=== PATIENT | female | born 1955 | race Hispanic/Latino ===

== ENCOUNTER 2022-03-19 10:50 | Inpatient (IN) | payer OTHER ==
[2022-03-19 11:50] LABS: Absolute Lymphocytes (CBC) 2.2 K/uL (0.7-4.9); Hematocrit 35.4 % (36.0-45.0); Lymphocytes % 29.5 % (15.3-44.8); MCV 92.7 fL (80-100); MPV 8.9 fL (7.6-11.3); RBC Red Blood Cell Count 3.81 M/uL (3.86-4.86)
[2022-03-19 12:06] LABS: Albumin 3.5 g/dL (3.4-5.0); Bilirubin Total 0.3 mg/dL (0.2-1.0); Potassium 4.2 mmol/L (3.5-5.1)
--- NOTE | 2022-03-19 12:43 | RAD REPORT ---
EXAM DESCRIPTION: CT - Abdomen Pelvis W Contrast - 03/19/2022 12:27 pm CLINICAL HISTORY: Abdominal pain/right lower quadrant pain COMPARISON: none. TECHNIQUE: Computed axial tomography of the abdomen pelvis was obtained. 100 cc Isovue-300 was admin istered intravenously. Oral contrast was not requested which limits evaluation of bowel and appendix All CT scans are performed using dose optimization technique as appropriate and may include automated exposure control or mA/KV adjustment according to patient size. FINDINGS: The gallbladder is contracted. Liver, spleen, pancreas and adrenals unremarkable Right kidney appears unremarkable. 1.5 centimeter structure within the left renal fossa presumably either a congenitally small or severe ly atrophied kidney. It contains a small cyst. There is no evidence of diverticulitis. Transverse colon extends into right lower pelvis. Ascending colon not seen. Presumably secondary to e ither surgery or congenital malformation Calcified uterine fibroid. Appendix not clearly seen. Mild compression deformity L1 vertebral body appears chronic IMPRESSION: Contracted gallbladder The appendix is not seen. No secondary signs appendicitis. However, the patient has clinical symptoms to suggest appendicitis then CT scan with oral contrast would be recommended
--- NOTE | 2022-03-19 14:35 | ER ---
Nurse's Notes [facility] Name: Ruth Doss Age: 66 yrs Sex: Female : 1955 Arrival Date: 03/19/2022 Time: 10:55 Bed 26 Private MD: Diagnosis: Upper GI bleed;Lower abdominal pain, unspecified;Anemia, unspecified;Essential (primary) hypertension Presentation: 03/19 11:07 Chief complaint: Patient states: Black stool about 3:30 am, second BM with black stool tp1 10:15. reports RLQ ABD pain described as pressure and is consistent, rates pain 4/10. denies nausea or vomiting. states second BM was loose. Coronavirus screen: Vaccine status: Patient reports receiving the 2nd dose of the covid vaccine. Ebola Screen: Patient negative for fever greater than or equal to 101.5 degrees Fahrenheit, and additional compatible Ebola Virus Disease symptoms Patient denies exposure to infectious person. Patient denies travel to an Ebola-affected area in the 21 days before illness onset. Initial Sepsis Screen: Does the patient meet any 2 criteria? No. Patient's initial sepsis screen is negative. Does the patient have a suspected source of infection? No. Patient's initial sepsis screen is negative. Risk Assessment: Do you want to hurt yourself or someone else? Patient reports no desire to harm self or others. Onset of symptoms was March 19, 2022. 11:07 Method Of Arrival: Ambulatory tp1 11:07 Acuity: HIRO 3 tp1 Triage Assessment: 11:11 General: Appears in no apparent distress. comfortable, Behavior is calm, cooperative. tp1 Pain: Complains of pain in right lower quadrant Pain currently is 4 out of 10 on a pain scale. Quality of pain is described as pressure, Pain began 2-3 days ago. Is continuous. Neuro: Pan Agitation-Sedation Scale (RASS): 0 - Alert and Calm Level of Consciousness is awake, alert, obeys commands, Oriented to person, place, time, situation. GI: Abdomen is flat, non-distended, Patient currently denies nausea, vomiting. Historical: - Allergies: 11:11 Ofloxacin; tp1 - PMHx: 11:11 Hypertensive disorder; Anxiety; hiatal hernia; tp1 - Immunization history:: Client reports receiving the 2nd dose of the Covid vaccine. - Social history:: Smoking status: unknown. Screenin:48 Abuse screen: Denies threats or abuse. Denies injuries from another. Nutritional jh6 screening: No deficits noted. Tuberculosis screening: No symptoms or risk factors identified. Fall Risk None identified. Assessment: 11:30 General: Appears in no apparent distress. Behavior is calm, cooperative. jh6 11:30 Pain: Complains of pain in abdomen Pain currently is 3 out of 10 on a pain scale. jh6 Quality of pain is described as crampy, Pain began suddenly, 4 hours ago. Is intermittent. GI: Abdomen is non-distended, Stools are reported to be dark in color. Bowel sounds present X 4 quads. Reports. 12:30 Reassessment: Patient and/or family updated on plan of care and expected duration. Pain jh6 level reassessed. Patient is alert, oriented x 3, equal unlabored respirations, skin warm/dry/pink. Patient denies pain at this time. 15:05 Reassessment: Patient appears in no apparent distress at this time. No changes from tw2 previously documented assessment. Patient and/or family updated on plan of care and expected duration. Pain level reassessed. Patient is alert, oriented x 3, equal unlabored respirations, skin warm/dry/pink. 16:58 Reassessment: Patient appears in no apparent distress at this time. Patient and/or hb family updated on plan of care and expected duration. Pain level reassessed. Patient is alert, oriented x 3, equal unlabored respirations, skin warm/dry/pink. 18:31 Reassessment: Patient appears in no apparent distress at this time. Patient and/or hb family updated on plan of care and expected duration. Pain level reassessed. Patient is alert, oriented x 3, equal unlabored respirations, skin warm/dry/pink. Vital Signs: 11:07 BP 168 / 89; Pulse 85; Resp 16; Temp 98.6; Pulse Ox 97% on R/A; Weight 63.5 kg; Height tp1 5 ft. 4 in. (162.56 cm); 14:00 BP 133 / 76; Pulse 84; Resp 17; Pulse Ox 98% ; Pain 0/10; jh6 15:05 BP 139 / 60; Pulse 89; Resp 17; Pulse Ox 99% on R/A; tw2 16:58 BP 137 / 71; Pulse 88; Resp 16; Pulse Ox 100% on R/A; hb 18:30 BP 132 / 70; Pulse 81; Resp 16; Pulse Ox 100% on R/A; hb 11:07 Body Mass Index 24.03 (63.50 kg, 162.56 cm) tp1 ED Course: 10:55 Patient arrived in ED. rg4 11:11 Triage completed. tp1 11:11 Arm band placed on. tp1 11:12 Vj Jimenes DO is Attending Physician. ms3 11:30 Placed in gown. Bed in low position. Call light in reach. Side rails up X 1. 6 11:31 Tiffanie Willis, LUCIA is Primary Nurse. 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 Inserted saline lock: 20 gauge in left [facility] antecubital area, using aseptic technique. Accessed. 12:28 CT Abd/Pelvis - IV Contrast Only In Process Unspecified. EDMS 12:33 Patient moved back from [address]. [facility] 14:33 Bhanu Fatima MD is Hospitalizing Provider. ms3 15:05 Pulse ox on. NIBP on. Warm blanket given. tw2 18:31 Patient admitted, IV remains in place. hb 19:20 Primary Nurse role handed off by Tiffanie Willis RN mw2 Administered Medications: 15:05 Drug: ProTONIX (pantoprazole) 40 mg Route: IVP; Site: left antecubital; tw2 16:49 Follow up: Response: No adverse reaction tw2 Medication: 11:49 VIS not applicable for this client. [facility] Outcome: 14:34 Decision to Hospitalize by Provider. ms3 18:30 Admitted to ER Hold. Please see [facility] for further documentation. hb 18:30 Condition: stable 18:30 Instructed on the need for admit, Demonstrated understanding of instructions. 03/20 12:49 Patient left the ED. Signatures: Dispatcher [employer] EDUT Nadja Carlos RN RN Roseanne Hernandez RN Parisa Reza RN RN tw2 Maria Guadalupe Neely rg4 Justina Varela mw2 Vj Jimenes DO DO ms3 Tiffanie Willis RN RN 6 Maya Verde RN RN tp1
--- NOTE | 2022-03-19 14:35 | EDPHYS ---
Physician Documentation [facility] Name: Ruth Doss Age: 66 yrs Sex: Female : 1955 Arrival Date: 03/19/2022 Time: 10:55 Bed 26 Private MD: ED Physician Vj Jimenes HPI: 03/19 14:31 This 66 yrs old Female presents to ER via Ambulatory with complaints of ms3 Black/Tarry Stools. 14:31 66-year-old female with past medical history of hypertension, anxiety, hiatal hernia, ms3 previous gastrointestinal bleeding that was unidentified presents for black stools that began at 830. Patient states at 1015 she developed diarrhea that was black. Patient states she is having right lower quadrant abdominal pain. Patient rates her pain a 3/10 and describes the pain as pressure. Patient states she has had abdominal pain for 3 days. Patient denies alleviating or inciting factors. Patient denies fevers, chills, lightheadedness, shortness of breath. Historical: - Allergies: 11:11 Ofloxacin; tp1 - PMHx: 11:11 Hypertensive disorder; Anxiety; hiatal hernia; tp1 - Immunization history:: Client reports receiving the 2nd dose of the Covid vaccine. - Social history:: Smoking status: unknown. ROS: 14:31 Constitutional: Negative for fever, and chills. Neck: Negative for injury, pain, and ms3 swelling, Cardiovascular: Negative for chest pain, and palpitations. Respiratory: Negative for shortness of breath, cough, wheezing, and pleuritic chest pain. 14:31 Abdomen/GI: Positive for abdominal pain, diarrhea, black/tarry stool. 14:31 All other systems are negative. Exam: 14:31 Constitutional: This is a well developed, well nourished patient who is awake, alert, ms3 and in no acute distress. Neck: Trachea midline, no cervical lymphadenopathy. Supple, full range of motion without nuchal rigidity, or vertebral point tenderness. No Meningismus. Chest/axilla: Normal chest wall appearance and motion. Nontender with no deformity. Cardiovascular: Regular rate and rhythm with a normal S1 and S2. No gallops, murmurs, or rubs. Normal PMI, no JVD. No pulse deficits. Respiratory: Lungs have equal breath sounds bilaterally, clear to auscultation and percussion. No rales, rhonchi or wheezes noted. No increased work of breathing, no retractions or nasal flaring. Abdomen/GI: Soft, non-tender, with normal bowel sounds. No distension or tympany. No guarding or rebound. No evidence of tenderness throughout. Skin: Warm, dry with normal turgor. Normal color with no rashes, no lesions, and no evidence of cellulitis. MS/ Extremity: Pulses equal, no cyanosis. Neurovascular intact. Full, normal range of motion. Psych: Awake, alert, with orientation to person, place and time. Behavior, mood, and affect are within normal limits. Vital Signs: 11:07 BP 168 / 89; Pulse 85; Resp 16; Temp 98.6; Pulse Ox 97% on R/A; Weight 63.5 kg; Height tp1 5 ft. 4 in. (162.56 cm); 14:00 BP 133 / 76; Pulse 84; Resp 17; Pulse Ox 98% ; Pain 0/10; jh6 15:05 BP 139 / 60; Pulse 89; Resp 17; Pulse Ox 99% on R/A; tw2 16:58 BP 137 / 71; Pulse 88; Resp 16; Pulse Ox 100% on R/A; hb 18:30 BP 132 / 70; Pulse 81; Resp 16; Pulse Ox 100% on R/A; hb 11:07 Body Mass Index 24.03 (63.50 kg, 162.56 cm) tp1 MDM: 11:27 Patient medically screened. ms3 14:31 Differential diagnosis: gastritis, diverticulitis, Gastritis. ms3 17:26 Data reviewed: vital signs, nurses notes, lab test result(s), radiologic studies, and ms3 as a result, I will admit patient. 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 Counseling: I had a detailed discussion with the patient and/or guardian regarding: the historical points, exam findings, and any diagnostic results supporting the discharge/admit diagnosis, lab results, radiology results, the need for further work-up and treatment in the hospital. ED course: Case discussed with Dr. Murguia. Discussed case with ANIL Escalera and he accepts patient on behalf of Dr Fatima.. 03/19 11:28 Order name: CBC with Diff; Complete Time: 12:50 ms3 03/19 11:28 Order name: CMP; Complete Time: 12:50 ms3 03/19 11:28 Order name: Lipase; Complete Time: 12:50 ms3 03/19 11:28 Order name: Urine Microscopic Only ms3 03/19 11:28 Order name: Type And Screen ms3 03/19 15:59 Order name: SARS RAPID bd 03/19 11:28 Order name: CT Abd/Pelvis - IV Contrast Only; Complete Time: 12:50 ms3 03/19 17:17 Order name: SARS-COV-2 Antigen Rapid EDMS 03/19 18:02 Order name: ABO/RH no charge EDMS 03/20 02:27 Order name: CBC with Automated Diff EDMS 03/20 02:33 Order name: Basic Metabolic Panel EDMS 03/20 02:51 Order name: Phosphorus EDMS 03/20 02:51 Order name: Magnesium EDMS 03/19 11:28 Order name: IV Saline Lock; Complete Time: 11:45 ms3 03/19 11:28 Order name: Labs collected and sent; Complete Time: 11:46 ms3 03/19 16:36 Order name: Labs - recollect needed: recollect the covid swab, please label the bd speciman; Complete Time: 17:10 Administered Medications: 15:05 Drug: ProTONIX (pantoprazole) 40 mg Route: IVP; Site: left antecubital; tw2 16:49 Follow up: Response: No adverse reaction tw2 Disposition Summary: 03/19/22 14:34 Hospitalization Ordered Hospitalization Status: Inpatient Admission ms3 Provider: Bhanu Fatima ms3 Condition: Stable ms3 Problem: new ms3 Symptoms: have improved ms3 Bed/Room Type: Standard ms3 Location: [facility] ER HOLD(03/19/22 17:19) jl7 Room Assignment: ERHOLD-(03/19/22 17:19) jl7 Diagnosis - Upper GI bleed ms3 - Lower abdominal pain, unspecified ms3 - Anemia, unspecified ms3 - Essential (primary) hypertension ms3 Forms: - Medication Reconciliation Form ms3 - SBAR form ms3 Signatures: Dispatcher [employer] EDMS Kiarra Brennan Tara, RN RN tw2 Guerrero Flores RN RN jl7 Vj Jimenes DO DO ms3 Ammon, Maya, RN RN tp1 Corrections: (The following items were deleted from the chart) 17: 14:34 Telemetry/MedSurg (Inpatient) ms3 jl7 : 14:34 ms3 jl7
[2022-03-19] MEDS ORDERED: PANTOPRAZOLE 40 MG INJ ONE (15:07)
[2022-03-19] MEDS ORDERED: SODIUM CHLORIDE 0.9% 10ML INJ IV PRN ×2 (16:06→19:48)
[2022-03-19] MEDS ORDERED: ACETAMINOPHEN 500 MG TAB PO PRN (16:09)
[2022-03-19] MEDS ORDERED: ONDANSETRON 4 MG/2 ML VIAL IV PRN (16:09)
[2022-03-19] MEDS ORDERED: MORPHINE 2 MG/ML SYR IV PRN (16:11)
--- NOTE | 2022-03-19 16:15 | P.HP ---
Certification for Inpatient Patient admitted to: Inpatient With expected LOS: >2 Midnights Patient will require the following post-hospital care: None Practitioner: I am a practitioner with admitting privileges, knowledge of patient current condition, hospital course, and medical plan of care. Services: Services provided to patient in accordance with Admission requirements found in Title 42 Section 412.3 of the Code of Federal Regulations Patient History Date of Service: 03/19/22 Reason for admission: melena History of Present Illness: Patient is a 66-year-old female with a past medical history significant for hypertension, anxiety disorder, GERD, GI bleed who presents with complaint of melena. Patient reported that she got up this morning to use the bathroom and noticed dark stool. A couple of hours later patient reported similar episodes of dark stool. Patient reports associated signs and symptoms of lower quadrant abdominal pain, rated as 3/10 in severity and described as dull in quality. Patient denies any other signs and symptoms. Symptoms are aggravated or relieved by nothing. Patient decided to present to the hospital for medical evaluation. Allergies ofloxacin Allergy (Unverified 03/19/22 16:22) Itching - Past Medical/Surgical History -: Hypertension -: GERD -: Anxiety disorder Past Surgical History: Reviewed- Non-Contributory - Family History Family History: Reviewed- Non-Contributory - Social History Smoking Status: Never smoker Alcohol use: Yes CD- Drugs: No Caffeine use: No Place of Residence: Home Review of Systems General: Unremarkable Eyes: Unremarkable ENT: Unremarkable Respiratory: Unremarkable Cardiovascular: Unremarkable Gastrointestinal: Abdominal Pain, Melena Genitourinary: Unremarkable Musculoskeletal: Unremarkable Integumentary: Unremarkable Neurological: Unremarkable Lymphatics: Unremarkable Physical Examination - Physical Exam General: Alert, In no apparent distress, Oriented x3, Cooperative HEENT: Atraumatic, Normocephalic, PERRLA Neck: Supple, 2+ carotid pulse no bruit, JVD not distended Respiratory: Clear to auscultation bilaterally, Normal air movement Cardiovascular: Normal pulses, Regular rate/rhythm Capillary refill: <2 Seconds Gastrointestinal: Normal bowel sounds, Tenderness Musculoskeletal: No clubbing, No swelling, No contractures Integumentary: No rashes, No breakdown, No significant lesion Neurological: Normal gait, Normal speech, Normal strength at 5/5 x4 extr, Normal tone Lymphatics: No axilla or inguinal lymphadenopathy - Studies Laboratory Data (last 24 hrs) 03/19/22 11:42: Sodium 139, Potassium 4.2, BUN 27 H, Creatinine 0.74, Glucose 110 H, Total Bilirubin 0.3, AST 7 L, ALT 20, Alkaline Phosphatase 83, Lipase 73 03/19/22 11:42: WBC 7.50, Hgb 11.9 L, Hct 35.4 L, Plt Count 304 Assessment and Plan - Plan --Gastrointestinal bleeding. H&H stable. Gastroenterology consulted. Patient placed on Protonix. Will await further recommendations from manager business intelligence. --Anemia of chronic disease. Compounded by blood loss anemia. H&H stable. We will continue to monitor hemoglobin and transfuse if less than 7.0. --GERD. Continue Protonix. --Hypertension. Stable. We will manage BP with hydralazine as needed --Abdominal pain. Contracted gallbladder and calcified uterine fibroid noted on CT imaging otherwise CT imaging unremarkable any intra abdominal abnormality. We will manage pain with current pain medication regimen. --Anxiety disorder. Ativan as needed. --DVT prophylaxis with SCDs Discharge Plan: Home Plan to discharge in: Greater than 2 days - Advance Directives Does patient have a Living Will: No Does patient have a Durable POA for Healthcare: No Physician Review: Patient Assessed, Agree with Above Assessment and Plan Critical Care: No
[2022-03-19] MEDS ORDERED: PANTOPRAZOLE INJ 80 MG in NA CHLORIDE 0.9% 250 ML IV SCH (17:00)
[2022-03-19 17:16] LABS: SARS-CoV-2 Antigen Rapid Res Negative (Negative)
[2022-03-19 18:37] VITALS: BMI 24.0
[2022-03-19] MEDS ORDERED: HYDRALAZINE HCL 20 MG/ML VIAL IV PRN (19:49)
[2022-03-19] MEDS ORDERED: LORAZEPAM 0.5 MG TABLET PO PRN (19:50)
[2022-03-19] MEDS ORDERED: PANTOPRAZOLE 40 MG INJ IVP SCH (21:00)
[2022-03-20 02:23] LABS: Hematocrit 33.1 % (36.0-45.0); Lymphocytes % 32.2 % (15.3-44.8); RBC Red Blood Cell Count 3.52 M/uL (3.86-4.86)
[2022-03-20 02:32] LABS: Potassium 4.4 mmol/L (3.5-5.1)
[2022-03-20 02:50] LABS: Magnesium 2.3 mg/dL (1.8-2.4); Phosphorus 4.2 mg/dL (2.5-4.9)
[2022-03-20] MEDS ORDERED: PANTOPRAZOLE 40 MG INJ ONE (08:15)
[2022-03-20] MEDS ORDERED: PANTOPRAZOLE 40 MG INJ IVP SCH (09:00)
[2022-03-20 13:00] VITALS: TEMP 98.6
[2022-03-20 13:06] VITALS: O2SAT 100
[2022-03-20 13:08] VITALS: BP 132/70
--- NOTE | 2022-03-20 20:22 | P.DS ---
Admission Date: 03/19/22 Discharge Date: 03/20/22 Disposition: ROUTINE DISCHARGE Discharge Condition: GOOD Reason for Admission: melena Consultations: GI - Dr. Meyer Brief History of Present Illness: 66-year-old female with a past medical history significant for hypertension, anxiety disorder, GERD, GI bleed who presents with complaint of melena. Patient reported that she got up this morning to use the bathroom and noticed dark stool. A couple of hours later patient reported similar episodes of dark stool. Patient denies any other signs and symptoms. Symptoms are aggravated or relieved by nothing. Patient decided to present to the hospital for medical evaluation. Hospital Course: Problem List GI Bleed, suspected upper GI bleed Anemia - acute blood loss and of chronic disease GERD HTN Anxiety Disorder Patient presented with dark stool (melena) <24hrs. Hemoglobin was stable in the 11s. She did not have any abdominal pain. CT abdomen/pelvis negative for any acute process. She did not have any further bowel movements during her hospitalization. GI - Dr. Meyer was consulted. Patient was deemed stable for discharge home. Recommended outpatient EGD in the next few days. Offered outpatient EGD tomorrow with Dr. Meyer. Patient preferred discharge, she is from out of town, and is confident she can follow up with her GI doctor for an EGD within the next week. Return precautions given. Discussed expect some slight black stools for next few days but improving, since she will have stool from last 1-2 days that have not been emptied yet. Prescribed protonix BID. Continue on soft diet. Vital Signs/Physical Exam: Temp Pulse Resp BP Pulse Ox 98.6 F 81 16 132/70 100 03/20/22 12:57 03/20/22 13:07 03/20/22 13:07 03/20/22 13:07 03/20/22 07:32 General: Alert, In no apparent distress, Oriented x3 HEENT: EOMI, Sclerae nonicteric Neck: Supple, No LAD Respiratory: Clear to auscultation bilaterally, Normal air movement Cardiovascular: No edema, Regular rate/rhythm Gastrointestinal: Soft and benign, Non-distended, No tenderness Neurological: Normal speech, Normal strength at 5/5 x4 extr, Normal affect Laboratory Data at Discharge: WBC 9.20 K/uL (4.3-10.9) D 03/20/22 02:06 Hgb 11.3 g/dL (12.0-15.0) L 03/20/22 02:06 Hct 33.1 % (36.0-45.0) L 03/20/22 02:06 Plt Count 286 K/uL (152-406) 03/20/22 02:06 Sodium 139 mmol/L (136-145) 03/20/22 02:06 Potassium 4.4 mmol/L (3.5-5.1) 03/20/22 02:06 BUN 23 mg/dL (7-18) H 03/20/22 02:06 Creatinine 0.71 mg/dL (0.55-1.3) 03/20/22 02:06 Glucose 114 mg/dL (74-106) H 03/20/22 02:06 Phosphorus 4.2 mg/dL (2.5-4.9) 03/20/22 02:06 Magnesium 2.3 mg/dL (1.8-2.4) 03/20/22 02:06 Total Bilirubin 0.3 mg/dL (0.2-1.0) 03/19/22 11:42 AST 7 U/L (15-37) L 03/19/22 11:42 ALT 20 U/L (12-78) 03/19/22 11:42 Alkaline Phosphatase 83 U/L (45-117) 03/19/22 11:42 Lipase 73 U/L (73-393) 03/19/22 11:42 Home Medications: Pantoprazole Sodium [Protonix] 40 mg PO BID 30 Days #60 tab 03/20/22 New Medications: Pantoprazole Sodium [Protonix] 40 mg PO BID 30 Days #60 tab Physician Discharge Instructions: Patient presented with dark stool (melena) <24hrs. Hemoglobin was stable in the 11s. She did not have any abdominal pain. CT abdomen/pelvis negative for any acute process. She did not have any further bowel movements during her hospitalization. GI - Dr. Meyer was consulted. Patient was deemed stable for discharge home. Recommended outpatient EGD in the next few days. Offered outpatient EGD tomorrow with Dr. Meyer. Patient preferred discharge, she is from out of town, and is confident she can follow up with her GI doctor for an EGD within the next week. Return precautions given. Discussed expect some slight black stools for next few days but improving, since she will have stool from last 1-2 days that have not been emptied yet. Prescribed protonix BID. Continue on soft diet. Followup: NONE,NONE [Primary Care Provider] - Time spent managing pt's care (in minutes): 45
== END 2022-03-20 15:30 | disposition home or self-care (01) | DRG 378 ==
LOC: ER 10:50 → ERHOLD 15:51 → 4TH 22:40 → ERHOLD 22:43
PROVIDERS: ADMIT Hospitalist; ATTEND Hospitalist
DX: K92.1 Melena (principal); D62 Acute posthemorrhagic anemia; K21.9 Gastro-esophageal reflux disease without esophagitis; I10 Essential (primary) hypertension; F41.9 Anxiety disorder, unspecified; D63.8 Anemia in other chronic diseases classified elsewhere; Z20.822 Contact with and (suspected) exposure to COVID-19
CPT/HCPCS: 36415; 74177; 80048; 80053; 83690; 83735; 84100; 85025; 86850; 86900; 86901; 87811; 96374; 99285; C9113; J7050; Q9967